=== PATIENT | female | born 1990 | race Caucasian/White ===

== ENCOUNTER 2016-07-20 23:15 | Observation (INO) | payer MEDICAID, OTHER ==
[~2016-07-20] VITALS: Ht 167.6 cm; Wt 82.7 kg
[2016-07-21] MEDS ORDERED: PREN-59 PO (00:15)
[2016-07-21] MEDS ORDERED: D5%-LACTATED RINGERS 1,000 ML IV SCH (01:00)
[2016-07-21] MEDS ORDERED: LACTATED RINGERS 1,000 ML IVBOLUS ONE (01:00)
== END 2016-07-21 03:40 | disposition home or self-care (01) ==
LOC: LDOP 23:15 → LDIP 07-21 01:00
PROVIDERS: ADMIT Obstetrics & Gynecology Gynecology; ATTEND Obstetrics & Gynecology Gynecology
DX: O26.893 Other specified pregnancy related conditions, third trimester (principal); O99.283 Endocrine, nutritional and metabolic diseases complicating pregnancy, third trimester; R10.9 Unspecified abdominal pain; Z3A.29 29 weeks gestation of pregnancy
CPT/HCPCS: 36415; 59025; 81001; 82731; 87086; G0378; 96360; 96361

== ENCOUNTER 2016-09-18 22:31 | Outpatient (CLI) | payer MEDICAID ==
[~2016-09-18 22:31] MED LIST: PREN-59 PO
== END 2016-09-18 23:25 | disposition home or self-care (01) ==
LOC: LDOP 22:31
PROVIDERS: ATTEND Obstetrics & Gynecology Gynecology
DX: O36.8130 Decreased fetal movements, third trimester, not applicable or unspecified (principal); Z3A.37 37 weeks gestation of pregnancy
CPT/HCPCS: 59025; 99211; G0463

== ENCOUNTER 2017-05-18 13:47 | Emergency (ER) | payer BC, MEDICAID ==
[~2017-05-18] VITALS: Ht 167.6 cm; Wt 82.8 kg
[2017-05-18 15:15] LABS: BASOPHILS # (AUTO) 0.04 x10^3/uL (0-0.1); BASOPHILS % (AUTO) 0 % (0-1); EOSINOPHILS # (AUTO) 0.11 x10^3/uL (0-0.4); EOSINOPHILS % (AUTO) 1 % (1-7); LYMPHOCYTES % (AUTO) 32 % (22-44); MD NO; MEAN CORPUSCULAR HEMOGLOBIN 31.9 pg (27.0-34.8); MEAN CORPUSCULAR HGB CONC 33.9 g/dL (32.4-35.8); MEAN CORPUSCULAR VOLUME 93.9 fL (80-100); MEAN PLATELET VOLUME 7.5 fL (7.4-10.4); MONOCYTES # (AUTO) 0.89 x10^3/uL (0.2-0.8); MONOCYTES % (AUTO) 10 % (2-9); NEUTROPHILS # (AUTO) 5.21 x10^3/uL (1.8-6.8); NEUTROPHILS % (AUTO) 57 % (42-75); PLATELET COUNT 351 x10^3/uL (130-400); RED BLOOD COUNT 4.67 x10^6/uL (3.82-5.3)
[2017-05-18 15:27] LABS: ALBUMIN 3.3 g/dL (3.4-5.0); ANION GAP 7 mmol/L (5-15); CALCIUM 8.5 mg/dL (8.5-10.1); CHLORIDE 107 mmol/L (98-107)
[2017-05-18 15:46] LABS: ALANINE AMINOTRANSFERASE 25 U/L (12-78); ALKALINE PHOSPHATASE 88 U/L (45-117); BILIRUBIN,TOTAL 0.2 mg/dL (0.2-1.0); CREATININE 0.77 mg/dL (0.55-1.02); TOTAL PROTEIN 7.7 g/dL (6.4-8.2)
[2017-05-18 18:38] VITALS: BP 126/80
[2017-05-18 18:42] LABS: MICROSCOPIC NOT IND
[2017-05-18 18:45] LABS: CULTURE INDICATED? NO
== END 2017-05-18 19:12 ==
LOC: ED 19:00
DX: O03.4 Incomplete spontaneous abortion without complication (principal); Z3A.10 10 weeks gestation of pregnancy
CPT/HCPCS: 36415; 76801; 80053; 81003; 84702; 85025; 86901; 99285